=== PATIENT | female | born 1995 | race Caucasian/White ===

== ENCOUNTER → 2017-11-11 | Outpatient (CLI) | payer OTHER | LOC: M EKG 15:12 | DX: R06.00 Dyspnea, unspecified (principal) | CPT/HCPCS: 93005 ==

== ENCOUNTER → 2017-12-17 | Outpatient (CLI) | payer OTHER ==
[2017-12-17 12:20] LABS: HEMATOCRIT 30.7 % (36.0-47.0); HEMOGLOBIN 8.4 g/dl (12.0-15.5); MEAN CORPUSCULAR HEMOGLOBIN 18.1 pg (27.0-33.0); MEAN CORPUSCULAR HGB CONC 27.4 g/dl (32.0-36.5); PLATELET COUNT, AUTOMATED 417 10^3/uL (150-450); RED BLOOD COUNT 4.65 10^6/uL (4.00-5.40); RED CELL DISTRIBUTION WIDTH 17.8 % (11.5-14.5); WHITE BLOOD COUNT 4.6 10^3/uL (4.0-10.0)
[2017-12-17 13:10] LABS: CHOLESTEROL LEVEL 119 MG/DL (<200); CHOLESTEROL RISK RATIO 2.125 (<5); HDL CHOLESTEROL 56 MG/DL (>40); LDL CHOLESTEROL 53 MG/DL (<100); NON-HDL-C 63 MG/DL; TRIGLYCERIDES LEVEL 50 MG/DL (<150)
== END ==
LOC: M WUC 10:43
DX: R06.02 Shortness of breath (principal); Z85.41 Personal history of malignant neoplasm of cervix uteri
CPT/HCPCS: 80061

== ENCOUNTER 2019-04-26 23:32 | Day surgery (SDC) | payer BC, OTHER ==
[~2019-04-26] VITALS: Ht 162.6 cm; Wt 75.0 kg
[2019-04-27] VITALS (8 sets, daily range): BP systolic 97–114; BP diastolic 51–62
[2019-04-27 00:10] LABS: BASO % 0.1 % (0.0-1.0); HEMATOCRIT 37.6 % (36.0-47.0); HEMOGLOBIN 11.4 g/dl (12.0-15.5); LYMPH # 0.6 10^3/uL (1.5-5.0); LYMPH % 4.4 % (24.0-44.0); MEAN CORPUSCULAR HEMOGLOBIN 23.5 pg (27.0-33.0); MEAN CORPUSCULAR HGB CONC 30.3 g/dl (32.0-36.5); MEAN CORPUSCULAR VOLUME 77.4 fl (80.0-96.0); MONO # 0.5 10^3/uL (0.0-0.8); MONO % 3.6 % (0.0-5.0); NEUTROPHILS # 13.3 10^3/uL (1.5-8.5); NEUTROPHILS % 91.5 % (36.0-66.0); PLATELET COUNT, AUTOMATED 319 10^3/uL (150-450); RED BLOOD COUNT 4.86 10^6/uL (4.00-5.40); WHITE BLOOD COUNT 14.6 10^3/uL (4.0-10.0)
[2019-04-27 00:43] LABS: HCG, SERUM QUALITATIVE NEGATIVE (NEGATIVE)
[2019-04-27 00:44] LABS: ALBUMIN 4.3 GM/DL (3.2-5.2); ALT/SGPT 23 U/L (12-78); BILIRUBIN,DIRECT 0.1 MG/DL (0.0-0.2); BILIRUBIN,TOTAL 0.4 MG/DL (0.2-1.0); BLOOD UREA NITROGEN 13 MG/DL (7-18); CALCIUM LEVEL 8.8 MG/DL (8.5-10.1); CARBON DIOXIDE LEVEL 29 MEQ/L (21-32); CHLORIDE LEVEL 104 MEQ/L (98-107); CREATININE FOR GFR 0.83 MG/DL (0.55-1.30); GLOMERULAR FILTRATION RATE > 60.0 (>60); GLUCOSE, FASTING 112 MG/DL (70-100); LIPASE 54 U/L (73-393); POTASSIUM SERUM 3.6 MEQ/L (3.5-5.1); SODIUM LEVEL 137 MEQ/L (136-145); TOTAL PROTEIN 7.6 GM/DL (6.4-8.2)
[2019-04-27] MEDS ORDERED: ISOVUE-370 76% 100ML VIAL (Q9967) As Ordered ONE (00:58)
[2019-04-27] MEDS ORDERED: MORPHINE 4 MG/ML 1ML VIAL/SYRINGE (J2270) IV ONE (01:00)
[2019-04-27] MEDS ORDERED: NS 1,000 ML IV ONE (01:00)
[2019-04-27] MEDS ORDERED: METOCLOPRAMIDE INJ 10MG/2ML VIAL (J2765) IV ONE (01:00)
--- NOTE | 2019-04-27 01:37 | REPVR ---
PROCEDURE INFORMATION: Exam: CT Abdomen And Pelvis With Contrast Exam date and time: 04/27/2019 12:52 AM Age: 24 years old Clinical indication: Abdominal pain; Localized; Right lower quadrant (rlq); Additional info: Rlq pain TECHNIQUE: Imaging protocol: Computed tomography of the abdomen and pelvis with intravenous contrast. Radiation optimization: All CT scans at this facility use at least one of these dose optimization techniques: automated exposure control; mA and/or kV adjustment per patient size (includes targeted exams where dose is matched to clinical indication); or iterative reconstruction. Contrast material: ISO; Contrast volume: 100 ml; Contrast route: AC; COMPARISON: No relevant prior studies available. FINDINGS: Liver: Normal. No mass. Gallbladder and bile ducts: Normal. No calcified stones. No ductal dilation. Pancreas: Normal. No ductal dilation. Spleen: Normal. No splenomegaly. Adrenals: Normal. No mass. Kidneys and ureters: Normal. No hydronephrosis. Stomach and bowel: Unremarkable. No obstruction. No mucosal thickening. Appendix: Tubular structure extending along the right lateral pelvic sidewall and anterior to the right psoas muscle measuring approximately 10 mm in diameter with internal calcifications and fluid and slight surrounding induration which is viewed with suspicion for appendicitis with appendicoliths. Intraperitoneal space: Trace fluid in the cul-de-sac which is physiologic in amount. Vasculature: Unremarkable. No abdominal aortic aneurysm. Lymph nodes: Unremarkable. No enlarged lymph nodes. Bladder: Unremarkable as visualized. Reproductive: Unremarkable as visualized. Bones/joints: Unremarkable. No acute fracture. Soft tissues: Unremarkable. IMPRESSION: 1. Probable mild appendicitis with appendicoliths. 2. Otherwise negative CT abdomen/pelvis. Electronically signed by: Mulugeta White On 04/27/2019 01:37:34 AM
[2019-04-27] MEDS ORDERED: VENTAER INH (02:01)
[2019-04-27] MEDS ORDERED: metroNIDAZOLE 500 MG in IV 1 EA IV ONE (02:45)
[2019-04-27] MEDS ORDERED: PIPERACILLIN/TAZOBACTAM SOD 3.375 GM in D5W MINI-BAG PLUS 50 ML IV ONE (02:45)
[2019-04-27] MEDS ORDERED: NORCO, ANEXSIA 5/325MG TABLET (HYDROcodone/ACETAMINOPHEN) PO PRN (03:00)
[2019-04-27] MEDS ORDERED: ONDANSETRON 4MG/2ML VIAL (J2405) IV PRN ×2 (03:00→08:45)
[2019-04-27] MEDS ORDERED: MORPHINE 2 MG/ML 1ML VIAL (J2270) IV PRN (03:00)
[2019-04-27] MEDS ORDERED: ACETAMINOPHEN TAB 650MG DOSE (2X325MG) PO PRN (03:00)
[2019-04-27] MEDS ORDERED: metroNIDAZOLE/NACL 500MG(5MG/ML)100 ML BAG (S0030) As Ordered ONE (03:22)
[2019-04-27] MEDS ORDERED: ZOSYN 3.375 GM VIAL (J2543) As Ordered ONE (03:22)
[2019-04-27] MEDS ORDERED: ONDANSETRON 4MG/2ML VIAL (J2405) As Ordered ONE ×2 (03:45→06:41)
[2019-04-27] MEDS ORDERED: MORPHINE 2 MG/ML 1ML VIAL (J2270) As Ordered ONE (03:46)
[2019-04-27] MEDS ORDERED: fentaNYL 100 MCG/2 ML INJECTION (J3010) As Ordered ONE (06:40)
[2019-04-27] MEDS ORDERED: MIDAZOLAM INJ 2 MG/2 ML VIAL (J2250) As Ordered ONE (06:40)
[2019-04-27] MEDS ORDERED: propofoL 200 MG/20 ML VIAL As Ordered ONE (06:40)
[2019-04-27] MEDS ORDERED: ACETAMINOPHEN 1000MG 100ML IV BTL (OFIRMEV) (J0131 PER 10MG) As Ordered ONE (06:41)
[2019-04-27] MEDS ORDERED: LIDOCAINE 2% INJ 100 MG/5 ML SDV (FOR ANES.) As Ordered ONE (06:41)
[2019-04-27] MEDS ORDERED: dexameTHASONE 4 MG/ML 1ML VIAL (J1100) As Ordered ONE (06:41)
[2019-04-27] MEDS ORDERED: ROCURONIUM BROMIDE 50 MG/5 ML VIAL As Ordered ONE (06:41)
[2019-04-27] MEDS ORDERED: SUGAMMADEX SODIUM 500 MG/5 ML VIAL (BRIDION) As Ordered ONE (06:41)
[2019-04-27] MEDS ORDERED: BUPIVACAINE/EPIN 0.25% 30 ML VIAL As Ordered ONE (07:14)
[2019-04-27] MEDS ORDERED: PHENYLephrine HCL 500 MCG/5 ML (100MCG/ML) SYRINGE (J2370) As Ordered ONE (07:51)
[2019-04-27] MEDS ORDERED: ePHEDrine SULFATE 25 MG/5 ML(5MG/ML) SYRINGE As Ordered ONE (07:51)
[2019-04-27] MEDS ORDERED: SUCCINYLCHOLINE 100 MG/5 ML SYRINGE (J0330) As Ordered ONE (07:52)
[2019-04-27] MEDS: fentaNYL 100 MCG/2 ML INJECTION (J3010) IV PRN ×4 (08:45→09:00)
[2019-04-27] MEDS ORDERED: LR 1,000 ML IV SCH (08:45)
[2019-04-27] MEDS ORDERED: METOCLOPRAMIDE INJ 10MG/2ML VIAL (J2765) IV PRN (08:45)
[2019-04-27] MEDS ORDERED: KETOROLAC 30 MG/ML VIAL (J1885) IV PRN (09:00)
[2019-04-27] MEDS: SENOKOT S TAB PO SCH ×2 (09:00→20:19)
[2019-04-27] MEDS: PERCOCET 5MG/325MG TAB PO PRN ×2 (09:10→10:00)
[2019-04-27] MEDS ORDERED: PERCOCET 5MG/325MG TAB As Ordered ONE (10:00)
[2019-04-27] MEDS: NS 1,000 ML IV SCH ×2 (10:28→19:13)
[2019-04-27] MEDS ORDERED: PIPERACILLIN/TAZOBACTAM SOD 3.375 GM in D5W MINI-BAG PLUS 50 ML IV SCH (12:00)
[2019-04-27] MEDS: PIPERACILLIN/TAZOBACTAM SOD 3.375 GM in D5W MINI-BAG PLUS 50 ML IV SCH ×2 (15:53→22:37)
[2019-04-27] MEDS: KETOROLAC 30 MG/ML VIAL (J1885) IV PRN ×2 (16:42→22:49)
--- NOTE | 2019-04-27 16:42 | HPE ---
DATE OF ADMISSION: 04/26/2019 CHIEF COMPLAINT: Abdominal pain. HISTORY OF PRESENT ILLNESS: The patient is a 24-year-old female whose pain has been going on for just around 24 hours. In the emergency room, she was found to have nausea, vomiting, temperatures up to 99. No recent illnesses or trauma. No prior surgeries to her abdomen. Labs showed a slightly elevated white count and CT was positive for signs of early appendicitis. Therefore, I was called to evaluate. Recommendation was to proceed with appendectomy, and she was brought up to the operating room. PAST MEDICAL HISTORY: Asthma. PAST SURGICAL HISTORY: Negative. SOCIAL HISTORY: Denies drug, alcohol, tobacco usage. FAMILY HISTORY: Noncontributory. REVIEW OF SYSTEMS: As stated in the history of the present illness. PHYSICAL EXAMINATION: General: Alert and oriented times 3 Vital signs: Temperature 98.7, pulse 76, respirations 16, blood pressure 109/69, pulse oximetry (ox) 98% room air. HEENT: Pupils equally round and react to light and accommodation. Heart: S1, S2, regular rate and rhythm. Lungs: Clear to auscultation bilaterally. Abdomen: Soft, tender to palpation right lower quadrant. Localized guarding, no rigidity. No ventral hernias. Extremities: No clubbing, cyanosis or edema. LABORATORY DATA: White count 14.6, hemoglobin 11,4, platelets 319, potassium 3.6, creatinine 0.83. IMAGING STUDIES: CT abdomen and pelvis was done that showed a slightly dilated appendix at 10 mm in diameter with internal calcifications and fluid and slight surrounding induration, suspicious for appendicitis with appendicoliths. ASSESSMENT/PLAN: Patient is a 24-year-old female, signs and symptoms consistent with appendicitis. Recommendation is to proceed with laparoscopic appendectomy. Risks and benefits of the procedure not limited to but including bleeding, infection, hernia formation, damage to surrounding structures, and need for further surgery were discussed in detail with the patient. Informed consent was obtained and procedure was planned. Postoperatively will keep her overnight on IV fluids, antibiotics, a regular diet. As long as she is doing well in the morning, plan will be to discharge home first thing tomorrow morning. HOLLAND
--- NOTE | 2019-04-27 20:08 | RO ---
DATE OF PROCEDURE: 04/27/2019 PREOPERATIVE DIAGNOSIS: Appendicitis. POSTOPERATIVE DIAGNOSIS: Appendicitis. PROCEDURE: Laparoscopic appendectomy. SURGEON: Dr. Jay Rene [place] DISPATCHER: None. ANESTHESIA: General. ESTIMATED BLOOD LOSS: 5 mL. COMPLICATIONS: None. INDICATIONS FOR PROCEDURE: The patient is a 24-year-old female with acute appendicitis. Recommendation is to proceed with laparoscopic appendectomy. The risks of the procedure including, but not limited to, bleeding, infection, hernia formation, damage to surrounding structures, and need for further surgery were discussed in detail with the patient. Informed consent was obtained and procedure was planned. DESCRIPTION OF PROCEDURE: The patient was brought back to operating room one, after sufficient sedation the abdomen was sterilely prepped and draped. Next, time-out was done to confirm proper patient, proper procedure. Following that, a 5 mm incision was made in the left lower quadrant, Veress needle inserted and the abdomen was insufflated to 15 mmHg. Veress needle was then removed and a 5 mm Optiview port was used to gain access to the abdomen. Once the abdomen was entered, 8 mm port was placed supraumbilically in the midline, another 5 mm port suprapubically in the midline. The abdomen was examined. The cecum was identified as well as a slightly dilated appendix. The appendix was elevated up, mesoappendix was taken down to the base of the appendix using Enseal. The base of the appendix was then ligated with two PDS Endoloops and then amputated again with the Enseal, and then placed inside of a 5 mm EndoCatch bag. Appendix was then brought out through the supraumbilical port site. The fascia at that site was then closed with a [id number] #0 Vicryl suture using a Celestine-Swetha needle. Once that was completed, the abdomen was desufflated. Skin incisions were closed with #4-0 Vicryl subcuticular sutures. The abdomen was cleaned and dried. Steri-Strips, 4x4, and tape were applied thus ending procedure. HOLLAND
[2019-04-28] VITALS: BP 118/64
[2019-04-28 04:00] VITALS: BP 106/55
[2019-04-28] MEDS: PIPERACILLIN/TAZOBACTAM SOD 3.375 GM in D5W MINI-BAG PLUS 50 ML IV SCH (04:31)
[2019-04-28] MEDS: KETOROLAC 30 MG/ML VIAL (J1885) IV PRN (05:26)
[2019-04-28] MEDS: NS 1,000 ML IV SCH (05:27)
[2019-04-28 08:00] VITALS: BP 105/56
[2019-04-28 08:25] LABS: BASO % 0.3 % (0.0-1.0); EOS % 0.6 % (0.0-3.0); HEMATOCRIT 33.3 % (36.0-47.0); HEMOGLOBIN 10.2 g/dl (12.0-15.5); LYMPH # 2.3 10^3/uL (1.5-5.0); LYMPH % 35.2 % (24.0-44.0); MEAN CORPUSCULAR HEMOGLOBIN 24.5 pg (27.0-33.0); MEAN CORPUSCULAR HGB CONC 30.6 g/dl (32.0-36.5); MONO # 0.5 10^3/uL (0.0-0.8); MONO % 6.9 % (0.0-5.0); NEUTROPHILS # 3.7 10^3/uL (1.5-8.5); NEUTROPHILS % 56.8 % (36.0-66.0); PLATELET COUNT, AUTOMATED 234 10^3/uL (150-450); RED BLOOD COUNT 4.16 10^6/uL (4.00-5.40); WHITE BLOOD COUNT 6.5 10^3/uL (4.0-10.0)
[2019-04-28] MEDS ORDERED: HYDR-3715 PO (08:39)
--- NOTE | 2019-04-29 18:50 | DSES ---
DATE OF ADMISSION: 04/26/2019 DATE OF DISCHARGE: 04/28/2019 ADMISSION DIAGNOSIS: Appendicitis. DISCHARGE DIAGNOSIS: Appendicitis. HOSPITAL COURSE: The patient is a 24-year-old female who presented late in the evening on 04/26/2019 and was found have appendicitis in the emergency room. She was brought to the operating room first in the morning on 04/27/2019 for laparoscopic appendectomy. Postoperatively she was kept throughout the day on IV fluids, antibiotics, regular diet. This morning, on 04/28/2019, she is tolerating diet, ambulating in the halls, pain is well-controlled. White count has come down from 14.6 to 6.5. Plan is to discharge her home today. I will not send her home with any antibiotics. I did send her with [facility] for a couple days' supply, also can use Motrin for pain. No showers until she gets home. No soaking in water for 5 days. No lifting more than 20 pounds for 2 weeks. 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 All of her questions are answered. She will followup with me in the office in 2 weeks.
== END 2019-04-28 10:15 | disposition home or self-care (01) ==
LOC: M ED 23:32 → M SDC 23:33 → M PED 04-27 09:45 → M SDC 04-28 10:15
PROVIDERS: ATTEND Surgery
DX: K35.30 Acute appendicitis with localized peritonitis, without perforation or gangrene (principal); J45.909 Unspecified asthma, uncomplicated
CPT/HCPCS: 36415; 44970; 74177; 80048; 80076; 81001; 83690; 84703; 85025; 88304; 96365; 96366; 96375; 96376; 99284; J0131; J0330; J1100; J1885; J2250; J2270; J2370; J2405; J2543; J2765; J3010; Q9967

== ENCOUNTER → 2022-01-20 | Outpatient (CLI) | payer BC ==
[~2022-01-20] MED LIST: HYDR-3715 PO; VENTAER INH
== END ==
LOC: M SOG 08:10
PROVIDERS: ATTEND Orthopaedic Surgery
DX: M25.561 Pain in right knee (principal)

== ENCOUNTER 2022-05-15 10:48 | Emergency (ER) | payer BC ==
[~2022-05-15] VITALS: Ht 162.6 cm; Wt 73.8 kg
[2022-05-15] MEDS ORDERED: NORT25CA2 PO (20:16)
[2022-05-15] MEDS ORDERED: NORT10CA2 PO (20:16)
[2022-05-15 20:20] VITALS: BP 130/78
== END 2022-05-15 20:20 | disposition home or self-care (01) ==
LOC: M ED 10:48
DX: I67.1 Cerebral aneurysm, nonruptured (principal); H57.02 Anisocoria; J45.909 Unspecified asthma, uncomplicated; Z79.52 Long term (current) use of systemic steroids; Z79.899 Other long term (current) drug therapy

== ENCOUNTER → 2022-05-22 | Outpatient (CLI) | payer BC ==
[~2022-05-22] MED LIST changes: +NORT10CA2 PO; +NORT25CA2 PO
== END ==
LOC: M PLARAD 14:54
PROVIDERS: ATTEND Orthopaedic Surgery
DX: M23.303 Other meniscus derangements, unspecified medial meniscus, right knee (principal); M25.461 Effusion, right knee; M71.21 Synovial cyst of popliteal space [Baker], right knee